=== PATIENT | male | born 1990 | race Caucasian/White ===

== ENCOUNTER 2017-12-26 18:46 | Emergency (ER) | payer BC ==
[~2017-12-26] VITALS: Ht 188 cm; Wt 95.2 kg
[2017-12-26] MEDS ORDERED: AMOXICILLIN875 MG (18:54)
== END 2017-12-26 19:36 | disposition home or self-care (01) ==
LOC: ED 18:46
DX: T18.9XXA Foreign body of alimentary tract, part unspecified, initial encounter (principal); F17.200 Nicotine dependence, unspecified, uncomplicated
CPT/HCPCS: 71046; 99283

== ENCOUNTER 2021-12-01 09:38 | Emergency (ER) | payer BC ==
[~2021-12-01] VITALS: Ht 188 cm; Wt 99.1 kg
[~2021-12-01 09:38] MED LIST: AMOXICILLIN875 MG
[2021-12-01] MEDS ORDERED: HYDROCODON-ACE1 EA10 PO (11:53)
[2021-12-01] MEDS ORDERED: ONDANSETRON ODT4 MG PO (11:53)
[2021-12-01] MEDS ORDERED: FLOMAX0.4 MG PO (11:53)
== END 2021-12-01 12:19 | disposition home or self-care (01) ==
LOC: ED 09:38
DX: N13.2 Hydronephrosis with renal and ureteral calculous obstruction (principal); F17.200 Nicotine dependence, unspecified, uncomplicated
CPT/HCPCS: 36415; 74176; 80048; 85025; 96374; 99284-25; J1885